=== PATIENT | male | born 1970 | race Caucasian/White ===

== ENCOUNTER 2025-02-07 06:45 | Day surgery (SDC) | payer OTHER ==
[~2025-02-07] VITALS: Ht 182.9 cm; Wt 79.6 kg
[~2025-02-07 06:45] MED LIST: AMLO1TAB25 PO; FLUV100T20 PO; LISI40TA10 PO; OXCA300T14 PO; POTA-149 PO
[2025-02-07] MEDS ORDERED: SIMETHICONE 40MG/0.6ML DROPS 30ML As Ordered ONE (06:50)
[2025-02-07] MEDS ORDERED: LIDOCAINE 2% INJ 100 MG/5 ML SYRINGE As Ordered ONE (07:14)
[2025-02-07 07:50] VITALS: TEMP 99.7
[2025-02-07 08:07] VITALS: BP 132/80; O2SAT 99
== END 2025-02-07 08:11 | disposition home or self-care (01) ==
LOC: M OPP 06:45
PROVIDERS: ATTEND Surgery
DX: Z12.11 Encounter for screening for malignant neoplasm of colon (principal); K64.2 Third degree hemorrhoids; G47.30 Sleep apnea, unspecified; Z79.899 Other long term (current) drug therapy